=== PATIENT | male | born 1980 | race Two or more races ===

== ENCOUNTER 2019-12-11 05:18 | Day surgery (SDC) | payer OTHER ==
[~2019-12-11 05:18] MED LIST: PROTON PO; ROBITUSSIN; ZYRTEC10 M3 PO
== END 2019-12-11 16:00 | disposition home or self-care (01) ==
LOC: CIR.AMB 05:18
PROVIDERS: ATTEND Urology
DX: N47.1 Phimosis (principal); Z20.828 Contact with and (suspected) exposure to other viral communicable diseases

== ENCOUNTER 2020-07-01 20:37 | Emergency (ER) | payer OTHER ==
[~2020-07-01] VITALS: Ht 170.2 cm; Wt 68.0 kg
[2020-07-01] MEDS ORDERED: SINGULAIR4 MG PO (20:46)
[2020-07-01] MEDS ORDERED: PROTONIX20 MG PO (20:46)
== END 2020-07-01 22:26 | disposition home or self-care (01) ==
LOC: ER 20:37
DX: R07.89 Other chest pain (principal)